=== PATIENT | male | born 1950 | race Caucasian/White ===

== ENCOUNTER → 2016-08-11 | Outpatient (CLI) | payer MEDICARE, OTHER | LOC: US 08:46 | DX: R10.9 Unspecified abdominal pain (principal); K80.80 Other cholelithiasis without obstruction; K76.0 Fatty (change of) liver, not elsewhere classified; N63 Unspecified lump in breast; N28.1 Cyst of kidney, acquired | CPT/HCPCS: 76700 ==

== ENCOUNTER → 2021-03-18 | Outpatient (CLI) | payer MEDICARE, OTHER | LOC: KOH-I 12:09 | DX: M25.511 Pain in right shoulder (principal); E11.9 Type 2 diabetes mellitus without complications; I10 Essential (primary) hypertension; E78.2 Mixed hyperlipidemia; M19.032 Primary osteoarthritis, left wrist; N40.0 Benign prostatic hyperplasia without lower urinary tract symptoms; E66.3 Overweight; Z79.84 Long term (current) use of oral hypoglycemic drugs | CPT/HCPCS: 73030 ==